=== PATIENT | female | born 1940 | race Caucasian/White ===

== ENCOUNTER 2017-03-05 19:01 | Emergency (ER) | payer MEDICARE, OTHER ==
[2017-03-05 19:29] VITALS: BP 117/72; TEMP 98.2; O2SAT 99
--- NOTE | 2017-03-05 19:38 | ED.PDOC ---
History of Present Illness - General Chief Complaint: Lower Extremity Injury Stated Complaint: right ankle pain, redness Time Seen by Provider: 03/05/17 19:30 Source: patient, RN notes reviewed, Vital Signs reviewed Exam Limitations: no limitations - History of Present Illness Initial Comments: Patient comes in with c/o R medial ankle pain X 1 week. No known injury. She does have a history of elevated Uric Acid and had been trying medications but they were causing a lot of GI upset. She stopped the last one ~2 weeks ago. Last Uric Acid level was 6.2. Occurred: last week Pain - Lower Extremity: moderate: Right Ankle Method of Injury: unknown Improving Factors: nothing Worsening Factors: movement Allergies/Adverse Reactions: Allergies Hydrocodone Allergy (Verified 03/05/17 19:34) Shellfish Allergy Allergy (Verified 03/05/17 19:34) Tramadol Allergy (Verified 03/05/17 19:34) Allopurinol Adverse Reaction (Verified 03/05/17 19:34) Penicillins Adverse Reaction (Verified 03/05/17 19:34) Home Medications: Ambulatory Orders Calcium Carbonate-Vitamin D [Calcium 600+D 600-200 mg-Unit] 1 tab PO 03/05/17 Colchicine 0.6 mg PO 5XD #15 tab 03/05/17 Docusate Sodium 100 mg PO 03/05/17 Furosemide 20 mg PO 03/05/17 Glipizide 5 mg PO 03/05/17 Levothyroxine Sodium [Synthroid] 125 mcg PO 03/05/17 Lovastatin 20 mg PO 03/05/17 Metoprolol Tartrate 50 mg PO 03/05/17 Multiple Vitamins W/ Minerals [Multivitamin Adults] 1 tab PO 03/05/17 Oxybutynin Chloride 5 mg PO 03/05/17 Review of Systems - Review of Systems Constitutional: States: no symptoms reported Respiratory: States: no symptoms reported Cardiology: States: no symptoms reported Musculoskeletal: States: see HPI, joint pain, joint swelling Skin: States: no symptoms reported Neurological: States: no symptoms reported All other Systems: No Change from Baseline Past Medical History (General) - Patient Medical History Hx Hypertension: Yes Hx Thyroid Disease: Yes Hx Diabetes: Yes Hx MRSA: No Surgical History: Hysterectomy - Vaccination History Hx Influenza Vaccination: Yes - Triage Comment ED Triage Comment: pain and redness to inner right ankle area. Family Medical History - Family History Father Family History: Unknown Physical Exam - Physical Exam General Appearance: Alert, Comfortable, No apparent distress, Well Developed, Well Groomed, Well Hydrated, Well Nourished Cardiovascular/Respiratory: no respiratory distress Leg: normal inspection, non-tender, no evidence of injury, normal ROM Knee: normal inspection, non-tender, no evidence of injury Ankle: soft tissue tenderness - Right medial ankle, swelling - R ankle, other - Medial R ankle erythematous, warm and tender to touch Foot: normal inspection, non-tender Neuro/Tendon: normal sensation, normal motor functions, normal tendon functions , no evidence tendon injury Mental Status: alert, oriented x 3 Skin: normal color, warm/dry Comments: Vital Signs 03/05/17 19:22 Temperature 98.2 F Pulse Rate [ 66 Right] Respiratory 16 Rate Blood Pressure 117/72 [Left Arm] O2 Sat by Pulse 99 Oximetry Progress - Progress Progress: 03/05/17 20:27 Uric Acid level is elevated. Will give Colchicine - Results/Orders Results/Orders: Laboratory Tests 03/05/17 19:44 Uric Acid 9.4 H - EKG/XRAY/CT XRAY: Ankle: degenerative changes, no fracture/dislocation per Rad Departure - Departure Clinical Impression: Acute gout of right ankle Qualifiers: Gout etiology: idiopathic Qualified Code(s): M10.071 - Idiopathic gout, right ankle and foot Time of Disposition: 20:28 Disposition: Discharge to Home or Self Care Condition: Good Departure Forms: ED Discharge - Pt. Copy, Patient Portal Self Enrollment Instructions: DI for Gout, Higher Vitamin C Intake Associated With Lower Risk of Gout Diet: other - Gout Diet Activity: increase activity as tolerated Referrals: Paul Painter MD [Primary Care Provider] - 1-2 Weeks Prescriptions: Colchicine 0.6 mg PO 5XD #15 tab Home Medications: Ambulatory Orders Calcium Carbonate-Vitamin D [Calcium 600+D 600-200 mg-Unit] 1 tab PO 03/05/17 Colchicine 0.6 mg PO 5XD #15 tab 03/05/17 Docusate Sodium 100 mg PO 03/05/17 Furosemide 20 mg PO 03/05/17 Glipizide 5 mg PO 03/05/17 Levothyroxine Sodium [Synthroid] 125 mcg PO 03/05/17 Lovastatin 20 mg PO 03/05/17 Metoprolol Tartrate 50 mg PO 03/05/17 Multiple Vitamins W/ Minerals [Multivitamin Adults] 1 tab PO 03/05/17 Oxybutynin Chloride 5 mg PO 03/05/17
[2017-03-05] MEDS ORDERED: COLCHICINE 0.6 MG TAB PO ONE (20:16)
--- NOTE | 2017-03-05 20:24 | RAD ---
EXAM DESCRIPTION: Ankle,Right 3 Views CLINICAL HISTORY: Pain over medial aspect COMPARISON: None FINDINGS: 3 views were submitted. There are degenerative changes. No definite acute fracture or dislocation is identified. Bone marrow attenuation is unremarkable. No radiopaque foreign body is identified. IMPRESSION: No definite acute fracture or dislocation. Electronically signed by: Meng Brown 03/05/2017 8:23 PM [facility]
== END 2017-03-05 20:38 | disposition home or self-care (01) ==
LOC: ER 19:01
DX: M10.071 Idiopathic gout, right ankle and foot (principal); I10 Essential (primary) hypertension; E07.9 Disorder of thyroid, unspecified; E11.9 Type 2 diabetes mellitus without complications; Z88.0 Allergy status to penicillin; Z88.8 Allergy status to other drugs, medicaments and biological substances; Z79.899 Other long term (current) drug therapy

== ENCOUNTER → 2017-03-28 | Outpatient (CLI) | payer MEDICARE, OTHER ==
--- NOTE | 2017-03-31 10:17 | MAM ---
EXAM DESCRIPTION: 3D Screening BILATERAL : Digital Mammography. CLINICAL HISTORY: 76 years Female SCREENING . No complaints. No family history breast cancer. Postmenopausal. No HRT. COMPARISON: 2-D digital screening bilateral studies 03/21/2016 and 03/18/2015. Report from prior examination also reviewed. TECHNIQUE: Bilateral CC and MLO projection full-field images, 3-D tomosynthesis digital mammographic technique. Also bilateral synthesized CC/ MLO full-field images. CAD not utilized. FINDINGS: The breast parenchymal density pattern is: Almost entirely fatty. No skin thickening or nipple retraction bilateral solitary microcalcifications. No focal, stellate mass or density, focal asymmetry , and no suspicious microcalcifications bilaterally. Stable mammograms compared to prior studies taking into account differences in mammographic technique IMPRESSION: BI-RADS CATEGORY: 2 - BENIGN FINDINGS. FOLLOW UP: Routine digital bilateral screening, one year interval from March 2017. Written communication explaining the IMPRESSION and follow-up, will be mailed to the patient and referring health care provider. According to the [employer], yearly mammograms are recommended starting at age 40 and continuing as long as a woman is in good health. Any breast change noted on a breast self-exam should be reported promptly to the patient's healthcare provider. Breast MRI is recommended for women with an approximately 20-25% or greater lifetime risk of breast cancer, including women with a strong family history of breast or ovarian cancer and women who have been treated for Hodgkin's disease. A negative mammographic report should not delay tissue diagnosis in patients with significant clinical history or physical findings. Extremely dense breast tissue limits the sensitivity of digital mammography. Electronically signed by: Meng Grossman MD 03/31/2017 10:16 AM [facility]
== END ==
LOC: MAMMO 13:24
PROVIDERS: ATTEND Obstetrics & Gynecology
DX: Z12.31 Encounter for screening mammogram for malignant neoplasm of breast (principal)
CPT/HCPCS: 77063; G0202

== ENCOUNTER → 2018-03-29 | Outpatient (CLI) | payer MEDICARE, OTHER ==
--- NOTE | 2018-03-30 09:44 | MAM ---
EXAM DESCRIPTION: 3D Screening BILATERAL : Digital Mammography. CLINICAL HISTORY: 77 years Female ANNUAL SCREENING . No complaints. No personal or family history of breast cancer. Childbirth. Postmenopausal 24 years. No HRT. Lifetime risk of developing breast cancer (Tyrer-Cuzick model)(%): Not calculated COMPARISON: Bilateral screening digital breast tomosynthesis 03/28/2017. TECHNIQUE: Bilateral CC and MLO projection full-field images, digital tomosynthesis mammographic technique. Bilateral digital 2-D full-field MLO images. CAD not available for tomosynthesis or 2-D images. FINDINGS: The breast parenchymal density pattern is: Scattered areas of fibroglandular density. No skin thickening or nipple retraction. Bilateral axillary lymph nodes. Solitary bilateral microcalcifications. No new focal, stellate mass or density, focal asymmetry , and no suspicious microcalcifications bilaterally. Stable mammograms compared to prior study. IMPRESSION: Benign exam. BIRAD CATEGORY: 2 BENIGN FINDINGS. RECOMMENDATIONS: FOLLOW UP: Routine digital bilateral mammographic screening, one year interval from March 2018. Written communication explaining the IMPRESSION and follow-up, will be mailed to the patient and referring health care provider. According to the [employer], yearly mammograms are recommended starting at age 40 and continuing as long as a woman is in good health. Any breast change noted on a breast self-exam should be reported promptly to the patient's healthcare provider. Breast MRI is recommended for women with an approximately 20-25% or greater lifetime risk of breast cancer, including women with a strong family history of breast or ovarian cancer and women who have been treated for Hodgkin's disease. A negative mammographic report should not delay tissue diagnosis in patients with significant clinical history or physical findings. Extremely dense breast tissue limits the sensitivity of digital mammography. Electronically signed by: Meng Grossman MD 03/30/2018 9:43 AM [facility]
== END ==
LOC: MAMMO 10:00
PROVIDERS: ATTEND Obstetrics & Gynecology
DX: Z12.31 Encounter for screening mammogram for malignant neoplasm of breast (principal)

== ENCOUNTER → 2018-10-29 | Outpatient (CLI) | payer MEDICARE, OTHER | LOC: LAB.O 12:06 | PROVIDERS: ATTEND Obstetrics & Gynecology | DX: Z01.419 Encounter for gynecological examination (general) (routine) without abnormal findings (principal); Z86.39 Personal history of other endocrine, nutritional and metabolic disease; E11.9 Type 2 diabetes mellitus without complications ==

== ENCOUNTER → 2019-04-02 | Outpatient (CLI) | payer MEDICARE, OTHER ==
--- NOTE | 2019-04-04 20:07 | MAM ---
EXAM DESCRIPTION: 3D Screening BILATERAL : Digital Mammography. CLINICAL HISTORY: 78 years Female SCREEN no complaints. No personal or family history of breast cancer. Menarche age 14. Childbirth age 23. Menopausal age 64. No HRT. Lifetime risk of developing breast cancer (Tyrer-Cuzick model)(%): 3.2. COMPARISON: Bilateral screening digital breast tomosynthesis 29 March 2018 and 28 March 2017. TECHNIQUE: Bilateral CC and MLO projection full-field images, digital tomosynthesis mammographic technique. Bilateral digital 2-D full-field MLO images. CAD not available for tomosynthesis or 2-D images. FINDINGS: The breast parenchymal density pattern is: Scattered areas of fibroglandular density. No skin thickening or nipple retraction. Bilateral solitary microcalcifications. Bilateral mole markers. No new focal, stellate mass or density, focal asymmetry , and no suspicious microcalcifications bilaterally. Stable mammograms compared to prior study. IMPRESSION: Benign exam. BIRAD CATEGORY: 2 BENIGN FINDINGS. RECOMMENDATIONS: FOLLOW UP: Routine digital bilateral mammographic screening, one year interval from March 2019. Written communication explaining the IMPRESSION and follow-up, will be mailed to the patient and referring health care provider. According to the [employer], yearly mammograms are recommended starting at age 40 and continuing as long as a woman is in good health. Any breast change noted on a breast self-exam should be reported promptly to the patient's healthcare provider. Breast MRI is recommended for women with an approximately 20-25% or greater lifetime risk of breast cancer, including women with a strong family history of breast or ovarian cancer and women who have been treated for Hodgkin's disease. A negative mammographic report should not delay tissue diagnosis in patients with significant clinical history or physical findings. Extremely dense breast tissue limits the sensitivity of digital mammography. Electronically signed by: Meng Grossman MD 04/04/2019 8:06 PM [facility]
== END ==
LOC: MAMMO 11:30
PROVIDERS: ATTEND Obstetrics & Gynecology
DX: Z12.31 Encounter for screening mammogram for malignant neoplasm of breast (principal)

== ENCOUNTER → 2019-06-19 | Outpatient (CLI) | payer MEDICARE, OTHER | LOC: LAB.O 07:49 | PROVIDERS: ATTEND Obstetrics & Gynecology | DX: E87.70 Fluid overload, unspecified (principal) ==

== ENCOUNTER → 2020-02-07 | Outpatient (CLI) | payer MEDICARE, OTHER | LOC: LAB.O 09:56 | PROVIDERS: ATTEND Obstetrics & Gynecology | DX: Z01.419 Encounter for gynecological examination (general) (routine) without abnormal findings (principal); E03.9 Hypothyroidism, unspecified ==

== ENCOUNTER 2020-02-10 05:14 | Emergency (ER) | payer MEDICARE, OTHER ==
--- NOTE | 2020-02-10 05:43 | ED.PDOC ---
History of Present Illness - General Source: patient, RN notes reviewed, Vital Signs reviewed, family, old records Exam Limitations: no limitations - History of Present Illness Initial Comments: 79 yo F was at ball game 9 days ago when she fell and rolled down the stadium. At that time she went to ER where she was told she had no broken bones. She did hit her head, but no loc. Was doing well on motrin and tyneol, but this morning developed sharped right sided back pain and neck pain. Hurts to take deep breaths so came in for evaluation. no new injury, no dizziness, headaches or change in vision. <Vera Allen - Last Filed: 02/10/20 06:46> <Jose Urena - Last Filed: 02/10/20 12:17> - General Chief Complaint: General Stated Complaint: rib pain after fall 9 days ago Time Seen by Provider: 02/10/20 05:15 - History of Present Illness Allergies/Adverse Reactions: Allergies Hydrocodone Allergy (Verified 03/05/17 19:34) Shellfish Allergy Allergy (Verified 03/05/17 19:34) Tramadol Allergy (Verified 03/05/17 19:34) Allopurinol Adverse Reaction (Verified 03/05/17 19:34) Penicillins Adverse Reaction (Verified 03/05/17 19:34) Home Medications: Ambulatory Orders Furosemide 10 mg PO DAILY 03/05/17 Glipizide 5 mg PO BID 03/05/17 Levothyroxine Sodium [Synthroid] 137 mcg PO 03/05/17 Lovastatin 20 mg PO BEDTIME 03/05/17 Metoprolol Tartrate 50 mg PO DAILYBK 03/05/17 Multiple Vitamins W/ Minerals [Multivitamin Adults] 1 tab PO DAILY 03/05/17 Oxybutynin Chloride 5 mg PO BID 03/05/17 Gabapentin 100 mg PO TID PRN #21 cap 02/10/20 Review of Systems - Review of Systems Constitutional: Denies: chills, fever EENTM: Denies: eye pain, blurred vision, nose pain, nose congestion, mouth pain Respiratory: Denies: cough, short of breath, stridor, wheezing Cardiology: Denies: chest pain, palpitations, syncope Gastrointestinal/Abdominal: Denies: abdominal pain, diarrhea, nausea, vomiting Genitourinary: Denies: discharge, frequency, hematuria Musculoskeletal: States: back pain, muscle pain, neck pain Skin: States: other - ecchymosis Neurological: Denies: headache, numbness, paresthesia, tingling, weakness Endocrine: Denies: unexplained weight gain, unexplained weight loss Hematologic/Lymphatic: Denies: easy bleeding, easy bruising <Vera Allen Abdon Filed: 02/10/20 06:46> Past Medical History (General) - Patient Medical History Hx Hypertension: Yes Hx Thyroid Disease: Yes Hx Diabetes: Yes Hx MRSA: No - Vaccination History Hx Influenza Vaccination: Yes <Vera Allen Filed: 02/10/20 06:46> Physical Exam - Physical Exam General Appearance: Alert, Comfortable, No apparent distress, Well Developed, Well Groomed, Well Hydrated, Well Nourished Head Injury: other - no armstrong sign or raccoon eye. large contusion on right forehead, healing eccymosis on right face Eye Exam: bilateral normal ENT Exam: hearing grossly normal, no evidence of ENT injury, no dental injury - no hemotympanum Peripheral Pulses: radial,right: 2+, radial,left: 2+, dorsalis pedis,right: 2+, dorsalis pedis,left: 2+ Cardiovascular/Respiratory: regular rate, rhythm, no M/R/G, normal peripheral pulses, no JVD, normal breath sounds, no respiratory distress Gastrointestinal/Abdominal: normal bowel sounds, non tender, soft, no organomegaly, no pulsatile mass Back Exam: normal inspection, no CVA tenderness, no vertebral tenderness, other - no evidence of swelling or ecchymosis, paraspinal muscle tenderness on right. back abrasian noted on left. healing. no sign of infection Extremity Exam: normal range of motion, other - no bony tenderness, stable gait, healing eccyhmosis on bilateral LE, right forearm contusion, ecchymosis. 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 Will get CT of chest with contrast, and a c-spine and head CT without contrast. Patient gets swelling with hydrocodone. Will plan on dc on gabapentin if ct show no acute pathology. The data reviewed when caring for this patient included: nurse notes, prior records, etc. The history and assessments from nurses notes were reviewed and considered, and the patient's home medication list was also reviewed and c onsidered. My assessment and the results of testing completed here in the ED were discussed with the patient/family. All questions were answered, and they express understanding of my assessment and the plan. I have reviewed medication, benefits, alternatives and side effects. Vera Allen DO #[id number] 02/10/20 06:46 - Results/Orders Results/Orders: 02/10/20 05:37 Cervical Spine [CT] Stat Chest w/Contrast [CT] Stat Head [CT] Stat 02/10/20 05:38 Hold Metformin x 48Hrs [id number] Laboratory Results Sodium 133 mmol/L (135-145) L 02/10/20 06:05 Potassium 3.8 mmol/L (3.6-5.0) 02/10/20 06:05 Chloride 98 mmol/L (101-111) L 02/10/20 06:05 Carbon Dioxide 25 mmol/L (21-31) 02/10/20 06:05 Anion Gap 13.8 (12-18) 02/10/20 06:05 BUN 24 mg/dL (7-18) H 02/10/20 06:05 Creatinine 1.12 mg/dL (0.6-1.3) 02/10/20 06:05 BUN/Creatinine Ratio 21.4 (10-20) H 02/10/20 06:05 Random Glucose 128 mg/dL (70-105) H 02/10/20 06:05 Serum Osmolality 272.1 mOsm/L (275-295) L 02/10/20 06:05 Calcium 9.2 mg/dL (8.4-10.2) 02/10/20 06:05 - EKG/XRAY/CT EKG: [place], Sinus Comments: 1st degree AVE block, no acute ischemia. <Vera Allen - Last Filed: 02/10/20 06:46> - Progress Progress: 02/10/20 12:16 Imaging shows right 10th rib fracture with no pneumothorax. Pain is controlled and patient feels comfortable going home. I have asked her to follow-up with her primary care doctor in 1 to 2 days for continued evaluation. Strict return precautions given. <Jose Urena - Last Filed: 02/10/20 12:17> Departure <Vera Allen - Last Filed: 02/10/20 06:46> <Jose Urena - Last Filed: 02/10/20 12:17> - Departure Clinical Impression: Ecchymosis Fall Qualifiers: Encounter type: subsequent encounter Qualified Code(s): W19.XXXD - Unspecified fall, subsequent encounter Back pain Qualifiers: Back pain location: thoracic back pain Chronicity: acute Back pain laterality: right Qualified Code(s): M54.6 - Pain in thoracic spine Disposition: Discharge to Home or Self Care Departure Forms: ED Discharge - Pt. Copy, Patient Portal Self Enrollment Instructions: Preventing Falls in the Older Adult, Muscle and Bone Pain (DC), Contusion (DC) Referrals: Paul Painter MD [Primary Care Provider] - 1-2 Days Prescriptions: Gabapentin 100 mg PO TID PRN #21 cap PRN Reason: Pain Home Medications: Ambulatory Orders Furosemide 10 mg PO DAILY 03/05/17 Glipizide 5 mg PO BID 03/05/17 Levothyroxine Sodium [Synthroid] 137 mcg PO 03/05/17 Lovastatin 20 mg PO BEDTIME 03/05/17 Metoprolol Tartrate 50 mg PO DAILYBK 03/05/17 Multiple Vitamins W/ Minerals [Multivitamin Adults] 1 tab PO DAILY 03/05/17 Oxybutynin Chloride 5 mg PO BID 03/05/17 Gabapentin 100 mg PO TID PRN #21 cap 02/10/20 Additional Instructions: magnesium oxide 400 mg daily as needed for muscle pain.
[2020-02-10] MEDS ORDERED: MAGNESIUM OXIDE 400 MG TAB ONE (06:10)
[2020-02-10] MEDS ORDERED: GABAPENTIN 100 MG CAP PO ONE (06:28)
--- NOTE | 2020-02-10 06:58 | CT ---
EXAM: Head HISTORY: 79 years Female fall 9 days ago COMPARISON: 05/10/2011 TECHNIQUE: Contiguous axial images of the head were obtained from the skull base through the vertex without IV contrast followed by multiplanar reformats. This exam was performed according to our departmental dose-optimization program, which includes automated exposure control, adjustment of the mA and/or kV according to patient size and/or use of iterative reconstruction technique. FINDINGS: Generalized parenchymal volume loss. No hydrocephalus. No midline shift, mass effect or abnormal extraaxial collection. No acute intracranial hemorrhage or infarct. Chronic microangiopathic ischemic white matter changes. Orbital contents are unremarkable. The paranasal sinuses and mastoid air cells are well pneumatized. No acute calvarial abnormality. Right frontal scalp hematoma. IMPRESSION: 1. No acute intracranial pathology. Electronically signed by: Rafita Mack MD 02/10/2020 6:56 AM CDT
--- NOTE | 2020-02-10 07:00 | CT ---
EXAM DESCRIPTION: Cervical Spine CLINICAL HISTORY: fall 9 days ago COMPARISON: 09/30/2011 TECHNIQUE: Contiguous axial images of the cervical spine were obtained without the administration of intravenous contrast followed by reconstruction images. This exam was performed according to our departmental dose-optimization program, which includes automated exposure control, adjustment of the mA and/or kV according to patient size and/or use of iterative reconstruction technique. FINDINGS: Kyphotic reversal the normal lordosis. Vertebral body heights are maintained. No spondylolisthesis, fracture or destructive osseous lesion. Endplates are well-visualized and the posterior elements are intact. The atlantoaxial relationship is preserved. Multilevel spondylosis. Degenerative calcific pannus surrounding the atlantoaxial joint. Left C4-5 articular pleural effusion. Prevertebral and paraspinous soft tissues are normal. No apical pneumothorax. IMPRESSION: 1. No acute fracture or traumatic malalignment. Electronically signed by: Rafita Mack MD 02/10/2020 6:59 AM CDT
--- NOTE | 2020-02-10 07:06 | CT ---
EXAM: CT Chest Without Intravenous Contrast CLINICAL HISTORY: The patient is 79 years old and is Female; fall 9 days ago TECHNIQUE: Axial computed tomography images of the chest without intravenous contrast. Sagittal and coronal reformatted images were created and reviewed. This CT exam was performed using one or more of the following dose reduction techniques: automated exposure control, adjustment of the mA and/or kV according to patient size, and/or use of iterative reconstruction technique. COMPARISON: No relevant prior studies available. FINDINGS: Artifacts: Beam hardening artifact from arm position. Lungs: No pulmonary consolidation or groundglass opacities. Pleural space: No significant pleural fluid. No pneumothorax. Heart: Unremarkable. No cardiomegaly. No significant pericardial effusion. Bones/joints: Nondisplaced fracture, right posterior 10th rib. No acute compression fracture or degenerative changes in the thoracic spine. Kyphoscoliosis. No dislocation. Soft tissues: Unremarkable. Vasculature: Unremarkable. No thoracic aortic aneurysm. Lymph nodes: No pathologically enlarged lymph nodes. Intraperitoneal space: No acute findings in the visualized upper abdomen IMPRESSION: 1. Nondisplaced fracture, right posterior 10th rib. 2. No significant pleural fluid. No pneumothorax. Electronically signed by: Kaylee Woodson MD 02/10/2020 7:04 AM CDT
[2020-02-10 07:21] VITALS: BP 158/71; TEMP 96.8; O2SAT 99
[2020-02-10] MEDS ORDERED: MAGNESIUM OXIDE 400 MG TAB PO SCH (09:00)
== END 2020-02-10 07:16 | disposition home or self-care (01) ==
LOC: ER 05:14
DX: S20.412A Abrasion of left back wall of thorax, initial encounter (principal); S50.11XA Contusion of right forearm, initial encounter; S00.83XA Contusion of other part of head, initial encounter; S80.11XA Contusion of right lower leg, initial encounter; S80.12XA Contusion of left lower leg, initial encounter; M54.6 Pain in thoracic spine; M54.2 Cervicalgia; R00.1 Bradycardia, unspecified; I44.0 Atrioventricular block, first degree; I10 Essential (primary) hypertension; E07.9 Disorder of thyroid, unspecified; E11.9 Type 2 diabetes mellitus without complications; Z79.899 Other long term (current) drug therapy; Z88.0 Allergy status to penicillin; Z88.5 Allergy status to narcotic agent; Z88.8 Allergy status to other drugs, medicaments and biological substances; Z91.013 Allergy to seafood; W18.30XA Fall on same level, unspecified, initial encounter; Y92.39 Other specified sports and athletic area as the place of occurrence of the external cause

== ENCOUNTER → 2020-04-07 | Outpatient (CLI) | payer MEDICARE, OTHER ==
--- NOTE | 2020-04-10 11:06 | MAM ---
EXAM DESCRIPTION: 3D Screening BILATERAL : Digital Mammography. CLINICAL HISTORY: 79 years Female ANNUAL SCREENING . No complaints. No family history of breast cancer. Menarche age. Childbirth age 23. Menopause age unknown. No HRT. Lifetime risk of developing breast cancer (Tyrer-Cuzick model)(%): Not calculated COMPARISON: Bilateral screening digital breast tomosynthesis March 2018 and March 2019. TECHNIQUE: Bilateral CC and MLO projection full-field images, digital tomosynthesis mammographic technique. Bilateral digital 2-D full-field MLO images. CAD available for 2-D images. FINDINGS: The breast parenchymal density pattern is: Scattered areas of fibroglandular density. Solitary microcalcifications. No skin thickening or nipple retraction No new focal, stellate mass or density, focal asymmetry , and no suspicious microcalcifications bilaterally. Stable mammograms compared to prior study. IMPRESSION: Benign exam. BIRAD CATEGORY: 2 BENIGN FINDINGS. RECOMMENDATIONS: FOLLOW UP: Routine digital bilateral mammographic screening, one year interval from March 2020. Written communication explaining the IMPRESSION and follow-up, will be mailed to the patient and referring health care provider. According to the [employer], yearly mammograms are recommended starting at age 40 and continuing as long as a woman is in good health. Any breast change noted on a breast self-exam should be reported promptly to the patient's healthcare provider. Breast MRI is recommended for women with an approximately 20-25% or greater lifetime risk of breast cancer, including women with a strong family history of breast or ovarian cancer and women who have been treated for Hodgkin's disease. A negative mammographic report should not delay tissue diagnosis in patients with significant clinical history or physical findings. Extremely dense breast tissue limits the sensitivity of digital mammography. Electronically signed by: Meng Grossman MD 04/10/2020 11:05 AM [facility]
== END ==
LOC: MAMMO 12:49
PROVIDERS: ATTEND Obstetrics & Gynecology
DX: Z12.31 Encounter for screening mammogram for malignant neoplasm of breast (principal)